=== PATIENT | female | born 1980 | race Caucasian/White ===

== ENCOUNTER → 2019-06-05 | Emergency (ER) | payer OTHER ==
[~2019-06-05] VITALS: Ht 160 cm; Wt 63.5 kg
[~2019-06-05] MED LIST: PRENATABS FA T1 EACH
== END | disposition home or self-care (01) ==
LOC: ER 00:33
DX: K29.70 Gastritis, unspecified, without bleeding (principal)

== ENCOUNTER 2019-09-28 10:15 | Outpatient (CLI) | payer OTHER | END 2019-09-28 13:19 | disposition home or self-care (01) | LOC: NST 10:15 | DX: Z34.83 Encounter for supervision of other normal pregnancy, third trimester (principal) ==

== ENCOUNTER 2019-10-25 13:18 | Inpatient (IN) | payer OTHER ==
[~2019-10-25] VITALS: Ht 157.5 cm; Wt 79.4 kg
== END 2019-11-18 11:19 | disposition home or self-care (01) | DRG 807 ==
LOC: LDR 11-09 13:14 → SURG-SUITE 11-16 07:37 → LDR 11-16 07:37 → SURG-SUITE 11-16 13:30
PROVIDERS: ADMIT Obstetrics & Gynecology Maternal & Fetal Medicine
PROC: 10E0XZZ Delivery of Products of Conception, External Approach (ICD-10-PCS; principal; 2019-11-16)
PROC: 3E033VJ Introduction of Other Hormone into Peripheral Vein, Percutaneous Approach (ICD-10-PCS; 2019-11-16)
PROC: 4A1HXCZ Monitoring of Products of Conception, Cardiac Rate, External Approach (ICD-10-PCS; 2019-11-16)
DX: O80 Encounter for full-term uncomplicated delivery (principal); Z37.0 Single live birth; Z3A.39 39 weeks gestation of pregnancy

== ENCOUNTER 2019-11-02 11:06 | Outpatient (CLI) | payer OTHER | END 2019-11-02 15:36 | disposition home or self-care (01) | LOC: NST 11:06 | DX: Z34.83 Encounter for supervision of other normal pregnancy, third trimester (principal) ==

== ENCOUNTER 2019-11-08 07:33 | Outpatient (CLI) | payer OTHER | END 2019-11-08 09:48 | disposition home or self-care (01) | LOC: OBS/DEL 07:33 | DX: O47.1 False labor at or after 37 completed weeks of gestation (principal) ==

== ENCOUNTER 2019-11-15 10:37 | Outpatient (CLI) | payer OTHER | END 2019-11-15 11:29 | disposition home or self-care (01) | LOC: NST 10:37 | DX: Z34.83 Encounter for supervision of other normal pregnancy, third trimester (principal); O36.8120 Decreased fetal movements, second trimester, not applicable or unspecified ==

== ENCOUNTER 2020-05-12 17:22 | Emergency (ER) | payer OTHER ==
[~2020-05-12] VITALS: Ht 157.5 cm; Wt 67.1 kg
== END 2020-05-12 20:10 | disposition home or self-care (01) ==
LOC: ER 17:22
DX: R42 Dizziness and giddiness (principal)

== ENCOUNTER 2022-08-05 17:29 | Emergency (ER) | payer OTHER ==
[~2022-08-05] VITALS: Ht 160 cm; Wt 68.0 kg
[2022-08-05] MEDS ORDERED: NABUMETONE750 MG PO (20:29)
== END 2022-08-05 21:24 | disposition home or self-care (01) ==
LOC: ER 17:29
DX: R00.2 Palpitations (principal); M94.0 Chondrocostal junction syndrome [Tietze]